=== PATIENT | female | born 1980 | race Two or more races ===

== ENCOUNTER 2020-10-03 09:18 | Emergency (ER) | payer SELFPAY ==
[~2020-10-03] VITALS: Ht 165.1 cm; Wt 57.2 kg
[2020-10-03 10:13] LABS: BASOPHILS % (AUTO) 0.9 % (0.0-2.0); EOSINOPHILS % (AUTO) 0.9 % (0.0-3.0); HEMATOCRIT 38.3 % (37.0-47.0); HEMOGLOBIN 12.5 G/DL (12.0-16.0); LYMPHOCYTES % (AUTO) 23.8 % (20.0-45.0); MEAN CORPUSCULAR VOLUME 86 FL (80-99); MONOCYTES % (AUTO) 7.4 % (1.0-10.0); PLATELET COUNT 283 K/UL (150-450); RED BLOOD COUNT 4.43 M/UL (4.20-5.40); RED CELL DISTRIBUTION WIDTH 11.7 % (11.6-14.8); WHITE BLOOD COUNT 6.3 K/UL (4.8-10.8)
[2020-10-03 10:14] LABS: APPEARANCE,URINE CLEAR; BILIRUBIN, URINE NEGATIVE (NEGATIVE); COLOR,URINE PALE YELLOW; GLUCOSE, URINE (UA) NEGATIVE (NEGATIVE); KETONES,URINE NEGATIVE (NEGATIVE); LEUKOCYTE ESTERASE ,URINE NEGATIVE (NEGATIVE); NITRITE,URINE NEGATIVE (NEGATIVE); PH,URINE 8 (4.5-8.0); PROTEIN,URINE NEGATIVE (NEGATIVE); UROBILINOGEN,URINE NORMAL MG/DL (0.0-1.0)
[2020-10-03] MEDS ORDERED: Omnipaque-300 100ml vial INJ PRN (10:15)
[2020-10-03 10:21] LABS: ANION GAP 9 mmol/L (5-15); BLOOD UREA NITROGEN 16 mg/dL (7-18); CALCIUM 8.8 MG/DL (8.5-10.1); CARBON DIOXIDE 25 MMOL/L (21-32); CHLORIDE 107 MMOL/L (98-107); CREATININE 0.6 MG/DL (0.55-1.30); POTASSIUM 3.7 MMOL/L (3.5-5.1); SODIUM 141 MMOL/L (136-145)
--- NOTE | 2020-10-03 10:27 | Emergency Room Report ---
History of Present Illness General Chief Complaint: Abdominal Pain Source: Patient Present Illness HPI 40-year-old female presents with epigastric pain that then migrated to the right lower quadrant, severity is mild, constant has been ongoing for the past 24 hours, she describes the pain as crampy, sharp she endorses some chills, no chest pain or shortness of breath no nausea no vomiting no diarrhea patient presents for evaluation and treatment Allergies: Coded Allergies: No Known Allergies (Unverified , 10/03/20) COVID-19 Screening Contact w/high risk pt: No Experienced COVID-19 symptoms?: No COVID-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 Patient History Past Medical History: see triage record Now: No Reviewed Nursing Documentation: PMH: Agreed; PSxH: Agreed Nursing Documentation-PMH Past Medical History: No Stated History Review of Systems All Other Systems: negative except mentioned in HPI Physical Exam Vital Signs Date Time Temp Pulse Resp B/P (MAP) Pulse Ox O2 Delivery O2 Flow Rate FiO2 10/03/20 09:21 99.0 105 17 124/80 (95) 98 Room Air Sp02 EP Interpretation: reviewed, normal General Appearance: well appearing, no apparent distress, alert Head: normocephalic, atraumatic Eyes: bilateral eye PERRL, bilateral eye EOMI ENT: uvula midline, moist mucus membranes Neck: supple, thyroid normal, supple/symm/no masses Respiratory: lungs clear, no respiratory distress, no retraction, no accessory muscle use Cardiovascular #1: normal peripheral pulses, regular rate, rhythm, no edema, no gallop, no murmur Gastrointestinal: soft, no guarding, no rebound, tenderness - Right lower quadrant Musculoskeletal: normal inspection Neurologic: alert, oriented x3 Psychiatric: mood/affect normal Skin: no rash, warm/dry Medical Decision Making Diagnostic Impression: Primary Impression: Abdominal cramps ER Course 40-year-old female with right lower abdominal cramp started with her menstrual period differential includes appendicitis, diverticulitis, follicle pain menses pain CT scan negative, transvaginal negative patient provided morphine, Toradol with significant pain improvement strict abdominal return precautions were discussed We will provide patient with ibuprofen as an outpatient most likely menstrual related pain no emergent causes of pain at this moment Laboratory Tests Test 10/03/20 09:33 White Blood Count 6.3 K/UL (4.8-10.8) Red Blood Count 4.43 M/UL (4.20-5.40) Hemoglobin 12.5 G/DL (12.0-16.0) Hematocrit 38.3 % (37.0-47.0) Mean Corpuscular Volume 86 FL (80-99) Mean Corpuscular Hemoglobin 28.3 PG (27.0-31.0) Mean Corpuscular Hemoglobin Concent 32.8 G/DL (32.0-36.0) Red Cell Distribution Width 11.7 % (11.6-14.8) Platelet Count 283 K/UL (150-450) Mean Platelet Volume 6.5 FL (6.5-10.1) Neutrophils (%) (Auto) 67.0 % (45.0-75.0) Lymphocytes (%) (Auto) 23.8 % (20.0-45.0) Monocytes (%) (Auto) 7.4 % (1.0-10.0) Eosinophils (%) (Auto) 0.9 % (0.0-3.0) Basophils (%) (Auto) 0.9 % (0.0-2.0) Urine Color Pale yellow Urine Appearance Clear Urine pH 8 (4.5-8.0) Urine Specific [place] 1.010 (1.005-1.035) Urine Protein Negative (NEGATIVE) Urine Glucose (UA) Negative (NEGATIVE) Urine Ketones Negative (NEGATIVE) Urine Blood 3+ (NEGATIVE) H Urine Nitrite Negative (NEGATIVE) Urine Bilirubin Negative (NEGATIVE) Urine Urobilinogen Normal MG/DL (0.0-1.0) Urine Leukocyte Esterase Negative (NEGATIVE) Urine RBC 2-4 /HPF (0 - 2) H Urine WBC 0 /HPF (0 - 2) Urine Squamous Epithelial Cells Few /LPF (NONE/OCC) Urine Amorphous Sediment Few /LPF (NONE) H Urine Bacteria Few /HPF (NONE) Urine HCG, Qualitative Negative (NEGATIVE) Sodium Level 141 MMOL/L (136-145) Potassium Level 3.7 MMOL/L (3.5-5.1) Chloride Level 107 MMOL/L (98-107) Carbon Dioxide Level 25 MMOL/L (21-32) Anion Gap 9 mmol/L (5-15) Blood Urea Nitrogen 16 mg/dL (7-18) Creatinine 0.6 MG/DL (0.55-1.30) Estimated Glomerular Filtration Rate > 60 mL/min (>60) Glucose Level 106 MG/DL (74-106) Calcium Level 8.8 MG/DL (8.5-10.1) Total Bilirubin 0.2 MG/DL (0.2-1.0) Aspartate Amino Transferase (AST) 16 U/L (15-37) Alanine Aminotransferase (ALT) 18 U/L (12-78) Alkaline Phosphatase 91 U/L (46-116) Total Protein 8.1 G/DL (6.4-8.2) Albumin 3.9 G/DL (3.4-5.0) Globulin 4.2 g/dL Albumin/Globulin Ratio 0.9 (1.0-2.7) L Lipase 161 U/L (73-393) EKG Diagnostic Results Troponin ordered: No EKG Time: 09:39 EP Interpretation: NSR, rate 91, QTc 435, no acute ST elevations, normal axis Rhythm Strip Diag. Results Rhythm Strip Time: 10:27 EP Interpretation: yes Rate: 82 Rhythm: NSR, no PVC's, no ectopy CT/MRI/US Diagnostic Results CT/MRI/US Diagnostic Results : Impression Procedure: CT Abdomen Pelvis w/Contrast Clinical Indication: Epigastric pain that then migrated to the right lower quadrant, mild in severity, constant for the last 4 hours, crampy and sharp with some chills Technique: No oral contrast utilized, per emergency room physician request IV administration nonionic contrast. Venous phase spiral acquisition obtained through the abdomen and pelvis. Multiplanar reconstructions were generated. Total dose length product 173 mGycm. CTDIvol(s) 3 mGy. Dose reduction achieved using automated exposure control Comparison: No comparison CT scan. Reference made to sonogram performed immediately prior Findings: The appendix is normal. There is no evidence of diverticulosis or diverticulitis. There is a small amount of free pelvic fluid. No small bowel distention. No free intraperitoneal gas. The distal esophagus, stomach, duodenum are unremarkable. The liver, gallbladder, bile ducts, pancreas, spleen, adrenals, kidneys are unremarkable. No retroperitoneal or mesenteric mass or adenopathy. No pelvic mass or adenopathy. There is a prominent follicle in the left ovary, which probably corresponds to the hemorrhagic by helical described on recent sonography. The included lung bases are clear. The bones are unremarkable. Impression: Limited assessment of the GI tract, due to lack of enteric contrast administration Essentially unremarkable exam. No definite acute abnormality Small amount free pelvic fluid, most likely physiologic The CT scanner at [facility] is accredited by the [employer] and the scans are performed using protocols designed to limit radiation exposure to as low as reasonably achievable to attain images of sufficient resolution adequate for diagnostic evaluation. Dictated By: Finn Guy MD Electronically Signed By:Finn Guy MD Signed Date/Time10/03/20 1316 CC: Alejandro Pruitt MD Procedure: US Pelvic w/Transvag Indication: Pelvic pain, negative Technique: Transabdominal and transvaginal images of the pelvis Doppler interrogation of the ovaries. Graded compression images of the right lower quadrant Comparison: none Findings: Graded compression images of the right lower quadrant do not demonstrate the appendix, either normal or abnormal. The uterus measures 7.6 cm length by 2.5 cm AP. The endometrium is 2 mm thick. Within the myometrium, there are multiple small fibroids, measuring up to 1.3 cm in diameter. There is a small amount free pelvic fluid. The ovaries are normal in size and configuration, demonstrating normal Doppler signal. The left ovary contains a 1.9 cm hemorrhagic follicle Impression: Nonvisualized appendix. Therefore nondiagnostic for the presence or absence of acute appendicitis No definite acute abnormality Uterine fibroids Hemorrhagic follicle in the left ovary Small amount free pelvic fluid, presumably physiologic Dictated By: Finn Guy MD Electronically Signed By:Finn Guy MD Signed Date/Time10/03/20 1252 CC: Alejandro Pruitt MD Last Vital Signs Date Time Temp Pulse Resp B/P (MAP) Pulse Ox O2 Delivery O2 Flow Rate FiO2 10/03/20 09:39 88 18 Room Air 10/03/20 09:21 99.0 124/80 (95) 98 Disposition: HOME, SELF-CARE Condition: Stable Scripts Ibuprofen* (MOTRIN*) 600 Mg Tablet 600 MG ORAL Q8H PRN for FOR PAIN, #30 TAB 0 Refills Prov: Alejandro Pruitt MD 10/03/20 Referrals: NOT CHOSEN IPA/,REFERRING (PCP) [facility] Patient Instructions: Abdominal Pain, Adult Additional Instructions: The patient was provided with discharge instructions, notified to follow-up with a primary care doctor and or specialist in the next 24-48 hours, and to return to the ED if they have worsening of their symptoms. Please note that this report is being documented using [employer] technology. This can lead to erroneous entry secondary to incorrect interpretation by the dictating instrument. Alejandro Pruitt MD Oct 03, 2020 10:27
[2020-10-03 10:29] LABS: ALANINE AMINOTRANSFERASE 18 U/L (12-78); ALBUMIN 3.9 G/DL (3.4-5.0); ALBUMIN/GLOBULIN RATIO 0.9 (1.0-2.7); ALKALINE PHOSPHATASE 91 U/L (46-116); ASPARTATE AMINO TRANSFERASE 16 U/L (15-37)
[2020-10-03 10:39] LABS: BILIRUBIN,TOTAL 0.2 MG/DL (0.2-1.0)
[2020-10-03 10:43] VITALS: BP 112/72
[2020-10-03] MEDS ORDERED: Morphine Sulfate 4mg/ml Inj (IV USE ONLY) IVP ONE (10:45)
--- NOTE | 2020-10-03 12:57 | Diagnostic Imaging Report ---
Indication: Pelvic pain, negative Technique: Transabdominal and transvaginal images of the pelvis Doppler interrogation of the ovaries. Graded compression images of the right lower quadrant Comparison: none Findings: Graded compression images of the right lower quadrant do not demonstrate the appendix, either normal or abnormal. The uterus measures 7.6 cm length by 2.5 cm AP. The endometrium is 2 mm thick. Within the myometrium, there are multiple small fibroids, measuring up to 1.3 cm in diameter. There is a small amount free pelvic fluid. The ovaries are normal in size and configuration, demonstrating normal Doppler signal. The left ovary contains a 1.9 cm hemorrhagic follicle Impression: Nonvisualized appendix. Therefore nondiagnostic for the presence or absence of acute appendicitis No definite acute abnormality Uterine fibroids Hemorrhagic follicle in the left ovary Small amount free pelvic fluid, presumably physiologic
[2020-10-03] MEDS ORDERED: Ketorolac 30mg Inj IV ONE (13:15)
--- NOTE | 2020-10-03 13:20 | Diagnostic Imaging Report ---
Clinical Indication: Epigastric pain that then migrated to the right lower quadrant, mild in severity, constant for the last 4 hours, crampy and sharp with some chills Technique: No oral contrast utilized, per emergency room physician request IV administration nonionic contrast. Venous phase spiral acquisition obtained through the abdomen and pelvis. Multiplanar reconstructions were generated. Total dose length product 173 mGycm. CTDIvol(s) 3 mGy. Dose reduction achieved using automated exposure control Comparison: No comparison CT scan. Reference made to sonogram performed immediately prior Findings: The appendix is normal. There is no evidence of diverticulosis or diverticulitis. There is a small amount of free pelvic fluid. No small bowel distention. No free intraperitoneal gas. The distal esophagus, stomach, duodenum are unremarkable. The liver, gallbladder, bile ducts, pancreas, spleen, adrenals, kidneys are unremarkable. No retroperitoneal or mesenteric mass or adenopathy. No pelvic mass or adenopathy. There is a prominent follicle in the left ovary, which probably corresponds to the hemorrhagic by helical described on recent sonography. The included lung bases are clear. The bones are unremarkable. Impression: Limited assessment of the GI tract, due to lack of enteric contrast administration Essentially unremarkable exam. No definite acute abnormality Small amount free pelvic fluid, most likely physiologic The CT scanner at [facility] is accredited by the [employer] and the scans are performed using protocols designed to limit radiation exposure to as low as reasonably achievable to attain images of sufficient resolution adequate for diagnostic evaluation.
[2020-10-03] MEDS ORDERED: IBUPROFEN600 M1 ORAL (13:25)
[2020-10-03 14:57] VITALS: BP 120/78
--- NOTE | 2020-10-05 02:24 | Cardiology Report ---
APPROVED REPORT EKG Measurement Heart [id number] <Conclusion> Normal sinus rhythm Normal ECG
== END 2020-10-03 13:25 | disposition home or self-care (01) ==
LOC: EMR 10:10
DX: R10.31 Right lower quadrant pain (principal); D25.9 Leiomyoma of uterus, unspecified
CPT/HCPCS: 36415; 74177; 76830; 76856; 80053; 81003; 81025; 83690; 85025; 93005; 96374; 96375; 99284; J1885; J2270; J2405; Q9965